=== PATIENT | female | born 1995 ===

== ENCOUNTER 2024-06-08 07:17 | Day surgery (SDC) | payer OTHER ==
[2024-06-08] MEDS ORDERED: BUPIVACAINE HCL 30 ML VIAL IJ ONE (14:00)
[2024-06-08] MEDS ORDERED: CHLORHEXIDINE GLUCONATE 120 ML BOTTLE TOP ONE (14:00)
[2024-06-08] MEDS ORDERED: CEFTRIAXONE SODIUM 2,000 MG VIAL IV ONE (14:00)
[2024-06-08] MEDS ORDERED: LIDOCAINE HCL 1%/EPINEPHRINE 20ML VIAL IJ ONE (14:00)
[2024-06-08] MEDS ORDERED: ONDANSETRON HCL 2 MG/ML VIAL IV ONE (14:40)
[2024-06-08] MEDS ORDERED: PROTONIX40 MG PO (15:04)
[2024-06-08] MEDS ORDERED: KETOROLAC TROMETHAMINE 30 MG VIAL IV ONE (15:05)
[2024-06-08] MEDS ORDERED: ACETAMINOPHEN 325 MG TABLET PO ONE (15:30)
[2024-06-08] MEDS ORDERED: GABAPENTIN 300 MG CAPSULE PO ONE (15:30)
== END 2024-06-08 17:55 | disposition home or self-care (01) ==
LOC: SURH 07:17 → CIR.AMB 07:17 → O/R 07:17 → SURH 12:29 → EDSTATUS 12:30 → SURG 14:45 → O/R 14:45 → SURG 15:41 → O/R 15:41 → CIR.AMB 17:55
PROVIDERS: ATTEND Surgery
DX: K81.1 Chronic cholecystitis (principal); Z91.012 Allergy to eggs; Z91.041 Radiographic dye allergy status; Z91.018 Allergy to other foods; Z91.013 Allergy to seafood